=== PATIENT | male | born 1980 | race Caucasian/White ===

== ENCOUNTER 2023-01-28 09:37 | Emergency (ER) | payer OTHER ==
[~2023-01-28] VITALS: Ht 185.4 cm; Wt 92.0 kg
[2023-01-28 10:20] VITALS: BP 145/81
[2023-01-28] MEDS ORDERED: ACETAMINOPHEN 500 MG TAB PO ONE (11:30)
[2023-01-28] MEDS ORDERED: HYDROcodone-ACET 5/325MG TAB PO ONE (11:45)
[2023-01-28] MEDS ORDERED: ACET500T58 PO (12:12)
== END 2023-01-28 12:30 | disposition home or self-care (01) ==
LOC: ER 09:37
DX: S43.402A Unspecified sprain of left shoulder joint, initial encounter (principal); X50.0XXA Overexertion from strenuous movement or load, initial encounter; Y93.89 Activity, other specified; Y92.89 Other specified places as the place of occurrence of the external cause; Y99.0 Civilian activity done for income or pay
CPT/HCPCS: 73030